=== PATIENT | female | born 1940 | race Caucasian/White ===

== ENCOUNTER 2023-09-05 17:33 | Emergency (ER) | payer OTHER, SELFPAY ==
[2023-09-05 17:45] VITALS: BP 185/92
[2023-09-05 18:05] LABS: % Basophils 1.3 % (0-2); % Eosinophils 3.7 % (0-6); % Immature Granulocytes 0.3 % (0-0.5); % Monocytes 10.4 % (1.7-9.3); % Neutrophils 65.3 % (42.2-75.2); Absolute Basophils 0.1 10^3/uL (0-0.2); Absolute Eosinophils 0.2 10^3/uL (0-0.7); Absolute Lymphocytes 1.2 10^3/uL (1.2-3.4); Absolute Monocytes 0.7 10^3/uL (0.1-0.6); Absolute Neutrophils 4.1 10^3/uL (1.4-6.5); Hematocrit 40.9 % (37.0-47.0); Hemoglobin 13.7 g/dL (12.0-16.0); Mean Corp Hgb Conc. 33.5 g/dL (33.0-37.0); Mean Corpuscular Hgb 29.3 pg (27.0-31.0); Mean Corpuscular Volume 87.6 fL (81.0-99.0); Mean Platelet Volume 10.4 fL (7.4-10.4); Nucleated Red Blood Cells % 0 %; Platelet Count 183 10^3/uL (130-400); Red Blood Cell Count 4.67 10^6/uL (4.20-5.40); Red Cell Dist. Width 13.1 % (11.5-14.5); White Blood Cell Count 6.3 10^3/uL (4.8-10.8)
[2023-09-05 18:25] LABS: ALT (SGPT) 33 U/L (0-35); AST (SGOT) 40 U/L (14-36); Albumin 4.3 g/dl (3.5-5.0); Alkaline Phosphatase 105 U/L (38-126); Blood Urea Nitrogen 16 mg/dl (7-17); Calcium 9.5 mg/dl (8.4-10.2); Carbon Dioxide 26 mmol/L (22-30); Chloride 106 mmol/L (98-107); Glucose 115 mg/dl (70-99); Potassium 4.4 mmol/L (3.5-5.1); Sodium 138 mmol/L (135-145); Total Bilirubin 0.9 mg/dl (0.2-1.3); Total Protein 6.8 g/dl (6.3-8.2); eGFR > 60.00
[2023-09-05 18:31] LABS: Troponin I < 0.012 ng/ml
[2023-09-05 20:20] VITALS: BP 167/99
[2023-09-05 20:21] VITALS: BMI 30.5
--- NOTE | 2023-09-05 20:43 | ED.GENMED ---
History of Present Illness
General
Chief Complaint: Blood Pressure Problem
Time Seen by Provider: 09/05/23 20:16
Travel History
Have you had any contact with someone who has COVID-19?: No
Do you have any symptoms of coronavirus? Fever > 100 degrees, chills, cough, shortness of breath, sore throat, loss of taste or smell, muscle aches, or headache?: No
History of Present Illness
History of Present Illness:
HPI: The patient presents due to concerns of blood pressure readings at home as high as the 190s. She states that she had been on valsartan 40 mg and was increased to [address] Infante a couple weeks ago. She had been taking 40 mg twice daily
instead of taking 80 mg daily. She is also on Coreg 3.125 mg. She apparently had a cardiac arrest that she relates to 'overdose' on Tikosyn.
EXAM:
GENERAL: Well appearing in no distress, she is hypertensive with systolics currently in the 160s, heart rate is in the 70s to 80s
HEENT: Moist oral mucosa
CARDIOVASCULAR: No murmurs, normal heart rate and rhythm, No chest wall tenderness
PULMONARY: No respiratory distress, breath sounds are clear and equal
ABDOMEN: Soft with no peritoneal signs, no tenderness
NEUROLOGIC: Excellent strength all extremities, no coordination deficits
PSYCHIATRIC: Appropriate mental status, fair insight and judgement, somewhat unreliable and inconsistent historian at times
EXTREMITIES: Nontender, no edema, moves all extremities equally
SKIN: No rash, no lesions
ED COURSE:
8:40 PM: I initially evaluated patient
NUMBER AND COMPLEXITY OF PROBLEMS ADDRESSED AT THE ENCOUNTER
� Chronic conditions affecting care: High blood pressure, has had cardiac arrest in the past, A-fib on Coumadin
� Acute Exacerbation and/or Progression of Chronic Illness: This is an acute problem but has had issues with blood pressure in the past
� Differential Diagnosis includes: Poorly controlled high blood pressure, hypertensive urgency
AMOUNT AND/OR COMPLEXITY OF DATA TO BE REVIEWED AND ANALYZED
� I performed an independent evaluation of and my interpretation is:
EKG: A-fib 92, occasional PVCs, right bundle branch block
CT:
X-rays:
Laboratory Studies: CBC, chemistries and troponin are unremarkable
Other:
� Review of other/old records: I saw nuclear med report from 2020 that was relatively unremarkable
� Clinical information was obtained by an independent historian: I spoke to the son-in-law and the at bedside
� Prescriptions/Medications Considered but not given:
� Further testing considered but not performed:
RISK OF COMPLICATIONS AND/OR MORBIDITY OR MORTALITY OF PATIENT MANAGEMENT
� Social determinants of health affecting care: Lives at home
� Discussion with other providers: I discussed with Dr. Infante at 8:45 PM
� Escalation of care including admission/observation vs risk of discharge considered: The patient's blood pressure spontaneously improved to the 160s. Her heart rate had been in the 70s. Patient prefers to have twice daily
dosing of valsartan and increase slowly. I recommend that she increase the valsartan to 2 of the 40 mg in the mornings and one of the 40 mg in the evening. She is to follow-up with her mica parts sprayer.
Past History
Past History
ED Past Medical History: Arrthythmia (Atrial fibrillation), Asthma, Cancer (Colon CA), HTN, [place], Psychiatric (Anxiety, depression) and Other (Colon cancer, interstitial cystitis, atrial fibrillation)
ED Past Surgical History: Appendectomy, Bowel resection (for COLON CA), Cholecystectomy and Gynecological (Hysterectomy)
Social History
Tobacco: Non-smoker
Alcohol: None
Personal:
Living: with family
Phy Exam
Physical Exam
Physical Exam:
See HPI
Course
Orders/Labs/Results
Orders:
Orders
09/05/23 17:34
Electrocardiogram (*1) Urgent
Reason for Study: Chest Pain
EKG- Treatment ONCE
09/05/23 17:57
Complete Blood Count/With Diff Urgent
Comprehensive Metabolic Panel Urgent
Troponin I Urgent
Abnormal Lab Results
09/05/23
17:57
Absolute Monos (auto) 0.7 H 10^3/uL
(0.1-0.6)
Lymphocytes % 19.0 L %
(20.5-51.1)
Monocytes % 10.4 H %
(1.7-9.3)
Glucose 115 H mg/dl
(70-99)
AST 40 H U/L
(14-36)
09/05/23 17:57
09/05/23 17:57
Vital Signs
Initial and Last Documented VS:
Initial Vital Signs
Temp Pulse Resp BP Pulse Ox
97.6 F 76 18 185/92 98
09/05/23 17:45 09/05/23 17:45 09/05/23 17:45 09/05/23 17:45 09/05/23 17:45
Last Documented Vital Signs
Temp Pulse Resp BP Pulse Ox
97.6 F 75 19 167/99 95
09/05/23 17:45 09/05/23 20:45 09/05/23 20:45 09/05/23 20:20 09/05/23 20:45
*Critical Care Note
Total Time (30-74mins, 75-104mins- exclusive of procedures): Not Applicable
ED Attending Note
-
Portions of this chart may have been created with voice recognition software.� Occasional wrong word or��sound alike� substitutions may have occurred due to the inherent limitations of voice recognition software.
Discharge Plan
Departure
Patient Disposition: Home (Routine Discharge)
Date of Disposition: 09/05/23
Time of Disposition: 20:56
Patient with high blood pressure during this ER visit?: Yes
Discharge Problem:
Poor high blood pressure control
Instructions: BLOOD PRESSURE
Prescriptions:
No Action
famotidine 40 MG tablet
40 mg PO HS
montelukast 4 MG tablet,chewable
4 mg PO HS
warfarin [Jantoven] 2.5 MG tablet
2.5 mg PO SUTHFR
valsartan 80 MG tablet
80 mg PO DAILY
spironolactone 25 MG tablet
25 mg PO DAILY
carvedilol 3.125 MG tablet
3.125 mg PO BID
warfarin [Jantoven] 5 MG tablet
5 mg PO MOTUWESA
estradiol [Estrace] 42.5 GM cream
1 applic VG SUWE
Referrals:
Niru Cohen, DO [Family Provider] -
Activity Restrictions/Additional Instructions:
Since you are currently taking 40 mg of valsartan 2 times a day, I recommend that you initially go up to 2 of the 40 mg of valsartan in the mornings and one of the 40 mg of valsartan evenings. Follow-up with your mica parts sprayer. If in 1 to 2 weeks
blood pressures remain elevated you could also increase the evening dose to 2 of the 40 mg tablets. Return here if worse.
Interventions
Interventions:
*Risk Screen - Suicide Last Done: 09/05/23 20:22
*General Assessment Last Done: 09/05/23 17:45
*Neglect/Abuse Screening Last Done: 09/05/23 20:22
*ED COVID-19 Vaccine History Last Done: 09/05/23 17:45
ED- Cardiac Assessment Last Done: 09/05/23 20:22
ED- Neurological Assessment Last Done: 09/05/23 20:22
ED- Pulmonary Assessment Last Done: 09/05/23 20:22
[2023-09-05 21:02] VITALS: BP 143/93
== END 2023-09-05 21:17 | disposition home or self-care (01) ==
LOC: EMR 17:33
PROVIDERS: Emergency Medicine; EMERGENCY PHYSICIAN Emergency Medicine; FAMILY PHYSICIAN Internal Medicine
DX: I10 Essential (primary) hypertension (principal); I48.91 Unspecified atrial fibrillation; Z79.01 Long term (current) use of anticoagulants
CPT/HCPCS: 99284; 80053; 84484; 85025; 93005